=== PATIENT | female | born 1990 | race Caucasian/White ===

== ENCOUNTER 2020-06-29 18:44 | Emergency (ER) | payer OTHER ==
--- NOTE | 2020-06-29 20:03 | ED Physician Documentation ---
PD HPI LOWER EXT INJURY - Stated complaint Stated Complaint: ankle pain - Chief complaint Chief Complaint: Ext Problem - History obtained from History obtained from: Patient - History of Present Illness PD HPI LOW EXT INJURY LOCATION: Left, Ankle Type of injury: Twist Where injury occurred: Other (hiking) Timing - onset: Today Timing - duration: Hours (3) Timing - details: Abrupt onset Pain level max: 6 Pain level now: 4 Improved by: Rest, Ice, Immobilization Worsened by: Moving, Palpating Associated symptoms: No: Weakness, Numbness, Tingling, Swelling Recently seen: Not recently seen Review of Systems Constitutional: denies: Fever : denies: Now EGA PD PAST MEDICAL HISTORY - Past Medical History Past Medical History: No - Present Medications Home Medications: Ambulatory Orders Medication Instructions Recorded Confirmed No Known Home Medications 06/29/20 06/29/20 - Allergies Allergies/Adverse Reactions: Allergies Allergy/AdvReac Type Severity Reaction Status Date / Time duloxetine Allergy Unknown Verified 06/29/20 19:05 Sulfa (Sulfonamide Allergy Anaphylaxis Verified 06/29/20 19:05 Antibiotics) PD ED PE NORMAL - Vitals Vital signs reviewed: Yes - General General: Alert and oriented X 3, No acute distress - Derm Derm: Warm and dry - Extremities Extremities: Other (Tender to palpation of the left lateral malleolus. No swelling. Neurovascular intact. Otherwise normal exam of the foot and ankle.) - Neuro Neuro: Alert and oriented X 3 Results - Vitals Vitals: Vital Signs - 24 hr 06/29/20 06/29/20 19:03 21:09 Temperature 36.9 C 36.7 C Heart Rate 97 88 Respiratory 18 16 Rate Blood Pressure 130/65 130/68 O2 Saturation 99 100 Oxygen O2 Source Room air - Rads (name of study) Left ankle x-ray Radiology: Prelim report reviewed, EMP read contemporaneously, See rad report (No acute abnormality) PD MEDICAL DECISION MAKING - ED course Complexity details: reviewed results, re-evaluated patient, considered differential, d/w patient ED course: Patient with a left ankle sprain. Ambulating well. Placed in a gel splint for comfort. Can use Motrin and Tylenol as needed for pain. Patient counseled regarding signs and symptoms for which I believe and urgent re-evaluation would be necessary. Patient with good understanding of and agreement to plan and is comfortable going home at this time This document was made in part using voice recognition software. While efforts are made to proofread this document, sound alike and grammatical errors may occur. Departure - Departure Disposition: 01 Home, Self Care Clinical Impression: Left ankle sprain Qualifiers: Encounter type: initial encounter Involved ligament of ankle: unspecified ligament Qualified Code(s): S93.402A - Sprain of unspecified ligament of left ankle, initial encounter Condition: Good Instructions: ED Sprain Ankle W X Ray Follow-Up: LUCRECIA WILLETT ARNP [Primary Care Provider] - Within 1 week Comments: You can use Motrin and Tylenol as needed for pain. You may bear weight as tolerated. Return if you worsen. Your x-rays do not show any acute abnormality today. Discharge Date/Time: 06/29/20 21:09
--- NOTE | 2020-06-29 20:24 | XRAY Report ---
PROCEDURE: Ankle 3 View LT INDICATIONS: fall, L ankle pain TECHNIQUE: 3 views of the ankle were acquired. COMPARISON: None FINDINGS: Bones: No fractures or dislocations. Ankle mortise is normally aligned. No suspicious bony lesions . Soft tissues: No tibiotalar joint effusion. Achilles tendon appears normal. IMPRESSION: Normal left ankle. Reviewed by: Marcelo Andrew on 06/29/2020 8:23 PM [facility] Approved by: Marcelo Andrew on 06/29/2020 8:23 PM [facility] Station ID: [id number]
[2020-06-29 21:10] VITALS: BP 130/68
== END 2020-06-29 21:09 | disposition home or self-care (01) ==
LOC: ED 18:44
DX: S93.402A Sprain of unspecified ligament of left ankle, initial encounter (principal); X50.1XXA Overexertion from prolonged static or awkward postures, initial encounter; Y93.01 Activity, walking, marching and hiking
CPT/HCPCS: 99282; 99283

== ENCOUNTER 2020-09-29 17:00 | Emergency (ER) | payer OTHER ==
--- NOTE | 2020-09-29 17:30 | ED Physician Documentation ---
History of Present Illness - Stated complaint Stated Complaint: IRREG HEART RATE - Chief complaint Chief Complaint: Cardiac - History obtained from History obtained from: Patient - History of Present Illness Timing: Today Pain level max: 0 Pain level now: 0 - Additonal information Additional information: Patient is a 30-year-old female who presents to the emergency department palpitations today. She states that she has a history of premature ventricular contractions. She states today it lasted longer than usual. She used to have to take metoprolol for this, but has been out for several years. No changes to her normal medications. Denies any possibility of . No recent illnesses. She drinks 1 cup of coffee per day. No chest pain. No shortness of breath. She states it felt like the PVC was about every 2-3 beats for about an hour. She felt lightheaded during this. Currently feels normal. Review of Systems Constitutional: denies: Fever, Chills Nose: denies: Rhinorrhea / runny nose, Congestion GI: denies: Vomiting, Diarrhea Skin: denies: Rash Musculoskeletal: denies: Neck pain, Back pain Neurologic: denies: Headache PD PAST MEDICAL HISTORY - Past Medical History Past Medical History: Yes Cardiovascular: Other (PVC) - Past Surgical History Past Surgical History: No - Present Medications Home Medications: Ambulatory Orders Medication Instructions Recorded Confirmed Metoprolol Tartrate [Lopressor] 25 mg PO BID PRN #10 tablet 09/29/20 - Allergies Allergies/Adverse Reactions: Allergies Allergy/AdvReac Type Severity Reaction Status Date / Time duloxetine Allergy Unknown Verified 09/29/20 17:04 Sulfa (Sulfonamide Allergy Anaphylaxis Verified 09/29/20 17:04 Antibiotics) - Living Situation Living Situation: reports: With family Living Arrangement: reports: At home - Social History Does the pt have substance abuse?: No - Family History Family history: reports: Non contributory PD ED PE NORMAL - Vitals Vital signs reviewed: Yes - General General: Alert and oriented X 3, No acute distress, Well developed/nourished - HEENT HEENT: Moist mucous membranes - Neck Neck: Supple, no meningeal sign - Cardiac Cardiac: RRR, No murmur, Strong equal pulses - Respiratory Respiratory: No respiratory distress, Clear bilaterally - Abdomen Abdomen: Soft, Non tender, Non distended - Derm Derm: Warm and dry - Extremities Extremities: No edema - Neuro Neuro: Alert and oriented X 3 - Psych Psych: Normal mood, Normal affect Results - Vitals Vitals: Vital Signs - 24 hr 09/29/20 09/29/20 17:02 17:59 Temperature 36.5 C Heart Rate 79 68 Respiratory 18 19 Rate Blood Pressure 138/93 H 105/72 O2 Saturation 100 100 Oxygen O2 Source Room air - EKG (time done) 1707 Rate: Rate (enter#) (75) Rhythm: NSR Spencer: Normal Intervals: Normal [place] QRS: Normal Ischemia: Normal ST segments Computer interpretation: Agree with computer - Labs Labs: Laboratory Tests 09/29/20 09/29/20 17:45 17:45 WBC 6.6 RBC 3.80 L Hgb 11.8 L Hct 35.1 L MCV 92.4 MCH 31.1 H MCHC 33.6 RDW 12.2 Plt Count 233 MPV 10.3 Neut # (Auto) 4.1 Lymph # (Auto) 1.8 Early # (Auto) 0.5 Eos # (Auto) 0.2 Baso # (Auto) 0.1 Absolute Nucleated RBC 0.00 Nucleated RBC % 0.0 Sodium 136 Potassium 3.4 L Chloride 102 Carbon Dioxide 23 Anion Gap 11.0 BUN 10 Creatinine 0.7 Estimated GFR (MDRD) 99 Glucose 92 Calcium 9.2 Phosphorus 3.7 Magnesium 2.0 Total Bilirubin 0.6 AST 17 ALT 18 Alkaline Phosphatase 36 L Total Protein 7.9 Albumin 4.8 Globulin 3.1 Albumin/Globulin Ratio 1.5 PD MEDICAL DECISION MAKING - ED course Complexity details: reviewed results, re-evaluated patient, considered differential, d/w patient ED course: Patient is asymptomatic here. No further symptoms. Her labs reveal a minimal hypokalemia, potassium replaced. We will prescribe her as needed metoprolol as this is worked well for her in the past. She will follow up with her doctor for further care. Patient counseled regarding signs and symptoms for which I believe and urgent re-evaluation would be necessary. Patient with good understanding of and agreement to plan and is comfortable going home at this time This document was made in part using voice recognition software. While efforts are made to proofread this document, sound alike and grammatical errors may occu r. No arrhythmias on EKG or telemetry Departure - Departure Disposition: 01 Home, Self Care Clinical Impression: Premature ventricular contraction Condition: Good Instructions: Premature Ventricular Contract About, Premature Ventricular Contract Tx Follow-Up: LUCRECIA WILLETT ARNP [Primary Care Provider] - Within 1 week Prescriptions: Metoprolol Tartrate [Lopressor] 25 mg PO BID PRN #10 tablet PRN Reason: palpitations Comments: Follow-up with your doctor for further care. Your potassium was slightly low today and this has been replaced. We will write you metoprolol that you can use in case this recurs until you see your doctor. Discharge Date/Time: 09/29/20 18:35
[2020-09-29 17:55] LABS: BASOPHILS # (AUTO) 0.1 10^3/uL (0.0-0.1); BASOPHILS % (AUTO) 0.8 %; EOSINOPHILS # (AUTO) 0.2 10^3/uL (0.0-0.7); EOSINOPHILS % (AUTO) 3.3 %; HCT - HEMATOCRIT 35.1 % (37.0-47.0); HGB - HEMOGLOBIN 11.8 g/dL (12.0-16.0); LYMPHOCYTES # (AUTO) 1.8 10^3/uL (1.5-3.5); LYMPHOCYTES % (AUTO) 27.3 %; MEAN CORPUSCULAR HEMOGLOBIN 31.1 pg (27.0-31.0); MEAN CORPUSCULAR HGB CONC 33.6 g/dL (32.0-36.0); MEAN CORPUSCULAR VOLUME 92.4 fL (81.0-99.0); MEAN PLATELET VOLUME 10.3 fL (7.9-10.8); MONOCYTES # (AUTO) 0.5 10^3/uL (0.0-1.0); MONOCYTES % (AUTO) 6.9 %; NEUTROPHILS # (AUTO) 4.1 10^3/uL (1.5-6.6); NEUTROPHILS % (AUTO) 61.4 %; PLT - PLATELET COUNT 233 10^3/uL (130-450); RED CELL DISTRIBUTION WIDTH 12.2 % (12.0-15.0); WHITE BLOOD COUNT 6.6 x10^3/uL (4.8-10.8)
[2020-09-29 18:00] VITALS: BP 105/72
[2020-09-29 18:05] LABS: ALBUMIN 4.8 g/dL (3.2-5.5); ALBUMIN/GLOBULIN RATIO 1.5 (1.0-2.2); BILIRUBIN,TOTAL 0.6 mg/dL (0.2-1.0); CALCIUM 9.2 mg/dL (8.5-10.3); CREATININE 0.7 mg/dL (0.4-1.0); PHOSPHORUS 3.7 mg/dL (2.5-4.6); POTASSIUM 3.4 mmol/L (3.5-5.0); TOTAL PROTEIN 7.9 g/dL (6.7-8.2)
[2020-09-29] MEDS ORDERED: POTASSIUM CHLORIDE 20 MEQ TABLET PO STA (18:14)
== END 2020-09-29 18:35 | disposition home or self-care (01) ==
LOC: ED 17:00
DX: I49.3 Ventricular premature depolarization (principal); E87.6 Hypokalemia
CPT/HCPCS: 36415; 80053; 83735; 84100; 85025; 93005; 99284; A9270